=== PATIENT | female | born 1950 | race Caucasian/White ===

== ENCOUNTER 2016-06-05 15:34 | Inpatient (IN) | payer MEDICARE, BC ==
--- NOTE | 2016-06-05 16:02 | ER Document Report ---
ED Medical Screen (RME) - General Stated Complaint: DIFFICULTY BREATHING,FEET SWELLING Notes: Patient has chronic COPD he has been having an exacerbation since when her doctor put her on antibiotics she is showing little improvement. I greeted and performed a rapid initial assessment of this patient. Comprehensive ED assessment and evaluation of the patient, analysis of test results and completion of the medical decision making process will be conducted by additional ED providers. TRAVEL OUTSIDE OF THE [place] IN LAST 30 DAYS: No - Related Data Allergies/Adverse Reactions: pregabalin [From Lyrica] Allergy (Verified 12/10/15 10:33) Muscle Pain Past Medical History - Past Medical History Cardiac Medical History: Reports: Hx Hypertension Denies: Hx Coronary Artery Disease, Hx Heart Attack Pulmonary Medical History: Reports: Hx Asthma - 08/23/13 breathing diff ER, Hx Bronchitis - Occasional in Winter, Hx COPD Denies: Hx Pneumonia Neurological Medical History: Denies: Hx Cerebrovascular Accident, Hx Seizures Endocrine Medical History: Reports: Hx Diabetes Mellitus Type 2 GI Medical History: Denies: Hx Hepatitis, Hx Hiatal Hernia, Hx Ulcer Musculoskeltal Medical History: Reports Hx Arthritis - poss left hand Infectious Medical History: Denies: Hx Hepatitis Past Surgical History: Denies: Hx Hysterectomy, Hx Mastectomy, Hx Open Heart Surgery, Hx Pacemaker - Immunizations Hx Diphtheria, Pertussis, Tetanus Vaccination: No - unsure
[2016-06-05] MEDS ORDERED: ALBUTEROL SULFATE 0.083% NEB 2.5 MG/3 ML AMPUL NEB ONE (16:10)
[2016-06-05 16:27] LABS: ABSOLUTE EOSINOPHILS # (AUTO) 0.1 10^3/uL (0.0-0.6); ABSOLUTE LYMPHOCYTES (AUTO) 2.2 10^3/uL (0.5-4.7); ABSOLUTE MONOCYTES (AUTO) 1.1 10^3/uL (0.1-1.4); ABSOLUTE NEUT (AUTO) 5.4 10^3/uL (1.7-8.2); BASOPHILS % (AUTO) 0.5 % (0-2); EOSINOPHILS % (AUTO) 1.5 % (0-6); HEMATOCRIT 44.4 % (36.0-47.0); HEMOGLOBIN 14.1 g/dL (12.0-15.5); HGB HCT DIFFERENCE -2.1; LYMPHOCYTES % (AUTO) 24.4 % (13-45); MEAN CORPUSCULAR HEMOGLOBIN 26.4 pg (27.0-33.4); MEAN CORPUSCULAR HGB CONC 31.7 g/dL (32.0-36.0); MEAN CORPUSCULAR VOLUME 83 fl (80-97); MONOCYTES % (AUTO) 12.5 % (3-13); RED BLOOD COUNT 5.33 10^6/uL (3.72-5.28); RED CELL DISTRIBUTION WIDTH 15.5 % (11.5-14.0); SEGMENTED NEUTROPHILS % (AUTO) 61.1 % (42-78); WHITE BLOOD COUNT 8.8 10^3/uL (4.0-10.5)
[2016-06-05 16:49] LABS: ALANINE AMINOTRANSFERASE 20 U/L (9-52); ALBUMIN 4.2 g/dL (3.5-5.0); ALKALINE PHOSPHATASE 82 U/L (38-126); ANION GAP 12 (5-19); ASPARTATE AMINO TRANSFERASE 13 U/L (14-36); BILIRUBIN,TOTAL 0.6 mg/dL (0.2-1.3); BLOOD UREA NITROGEN 11 mg/dL (7-20); CALCIUM 10.1 mg/dL (8.4-10.2); CARBON DIOXIDE 31 mmol/L (22-30); CHLORIDE 96 mmol/L (98-107); CREATININE RESULT 0.85 mg/dL (0.52-1.25); GLUCOSE 184 mg/dL (75-110); POTASSIUM 4.6 mmol/L (3.6-5.0); TOTAL PROTEIN 6.8 g/dL (6.3-8.2)
[2016-06-05] MEDS ORDERED: DILTIAZEM HCL INJ 25 MG/5 ML VIAL IV ONE (17:23)
[2016-06-05] MEDS ORDERED: DILTIAZEM HCL/D5W 125 ML IV PRN (17:23)
--- NOTE | 2016-06-05 17:26 | ER Document Report ---
ED General - General Chief Complaint: Breathing Difficulty Stated Complaint: DIFFICULTY BREATHING,FEET SWELLING Mode of Arrival: Ambulatory Information source: Patient Notes: 65-year-old female history of COPD who was seen by her primary care physician 4 days prior presents with complaints of shortness of breath. Patient notes that symptoms do not improve after being seen by the primary care physician, patient was satting 77% in her office TRAVEL OUTSIDE OF THE [place] IN LAST 30 DAYS: No - HPI Onset: Last week Onset/Duration: Persistent Quality of pain: No pain Severity: Moderate Pain Level: Denies Associated symptoms: Shortness of breath Exacerbated by: Denies Relieved by: Denies Similar symptoms previously: Yes Recently seen / treated by doctor: Yes - Related Data Allergies/Adverse Reactions: pregabalin [From Lyrica] Allergy (Verified 06/05/16 17:31) Muscle Pain Home Medications: Current Home Medications Albuterol Sulfate [Ventolin 0.042% Neb 1.25 mg/3 ml Ampul] 1.25 mg NEB Q4H PRN 06/05/16 [History] Fluticasone/Salmeterol [Advair 500-50 Diskus 28 Dose] 1 inh IH Q12H 06/05/16 [ History] Tramadol HCl [Ultram 50 mg Tablet] 1 tab PO PRN PRN 06/05/16 [History] Past Medical History - Social History Smoking Status: Current Every Day Smoker Cigarette use (# per day): Yes Chew tobacco use (# tins/day): No Smoking Education Provided: Yes - Patient counselled regarding cessation for 4 minutes Family History: Reviewed & Not Pertinent - Past Medical History Cardiac Medical History: Reports: Hx Hypertension Denies: Hx Coronary Artery Disease, Hx Heart Attack Pulmonary Medical History: Reports: Hx Asthma - 08/23/13 breathing diff ER, Hx Bronchitis - Occasional in Winter, Hx COPD Denies: Hx Pneumonia Neurological Medical History: Denies: Hx Cerebrovascular Accident, Hx Seizures Endocrine Medical History: Reports: Hx Diabetes Mellitus Type 2 GI Medical History: Denies: Hx Hepatitis, Hx Hiatal Hernia, Hx Ulcer Musculoskeltal Medical History: Reports Hx Arthritis - poss left hand Infectious Medical History: Denies: Hx Hepatitis Past Surgical History: Denies: Hx Hysterectomy, Hx Mastectomy, Hx Open Heart Surgery, Hx Pacemaker - Immunizations Hx Diphtheria, Pertussis, Tetanus Vaccination: No - unsure Hx Pneumococcal Vaccination: 05/08/14 Review of Systems - Review of Systems Notes: REVIEW OF SYSTEMS: CONSTITUTIONAL : Denies fever, chills, or sweats. Denies recent illness. EENT: Denies eye, ear, throat, or mouth pain or symptoms. Denies nasal or sinus congestion or discharge. Denies throat, tongue, or mouth swelling or difficulty swallowing. CARDIOVASCULAR: Denies chest pain. Denies palpitations or racing or irregular heart beat. Admits to lower extremity edema RESPIRATORY admits to shortness of breath GASTROINTESTINAL: Denies abdominal pain or distention. Denies nausea, vomiting , or diarrhea. Denies blood in vomitus, stools, or per rectum. Denies black, tarry stools. Denies constipation. GENITOURINARY: Denies difficulty urinating, painful urination, burning, frequency, blood in urine, or discharge. FEMALE GENITOURINARY: Denies vaginal bleeding, heavy or abnormal periods, irregular periods. Denies vaginal discharge or odor. MUSCULOSKELETAL: Denies back or neck pain or stiffness. Denies joint pain or swelling. SKIN: Denies rash, lesions or sores. HEMATOLOGIC : Denies easy bruising or bleeding. LYMPHATIC: Denies swollen, enlarged glands. NEUROLOGICAL: Denies confusion or altered mental status. Denies passing out or loss of consciousness. Denies dizziness or lightheadedness. Denies headache. Denies weakness or paralysis or loss of use of either side. Denies problems with gait or speech. Denies sensory loss, numbness, or tingling. Denies seizures. PSYCHIATRIC: Denies anxiety or stress. Denies depression, suicidal ideation, or homicidal ideation. ALL OTHER SYSTEMS REVIEWED AND NEGATIVE. Dictation was performed using [employer] voice recognition software PHYSICAL EXAMINATION: GENERAL: Well-appearing, well-nourished and in no acute distress. HEAD: Atraumatic, normocephalic. EYES: Pupils equal round and reactive to light, extraocular movements intact, conjunctiva are normal. ENT: Nares patent, oropharynx clear without exudates. Moist mucous membranes. NECK: Normal range of motion, supple without lymphadenopathy LUNGS: Decreased breath sounds all throughout HEART: Irregular rate and rhythm ABDOMEN: Soft, nontender, nondistended abdomen. No guarding, no rebound. No masses appreciated. Female : deferred Musculoskeletal: Normal range of motion, no pitting or edema. No cyanosis. NEUROLOGICAL: Cranial nerves grossly intact. Normal speech, normal gait. Normal sensory, motor exams PSYCH: Normal mood, normal affect. SKIN: Warm, Dry, normal turgor, no rashes or lesions noted. Physical Exam - Vital signs Vitals: Resp 22 H 06/05/16 16:30 Course - Re-evaluation Re-evalutation: 06/05/16 17:25 pt noted to be in new onset afib, ordered cardizem but the rate is intermittently normal. Patient satting 82% on room air 06/05/16 19:03 cta negative[facility], [facility] 06/05/16 19:03 06/05/16 19:05 - Vital Signs Vital signs: Temp Pulse Resp BP Pulse Ox 20 140/92 H 97 06/05/16 17:01 06/05/16 17:01 06/05/16 17:01 - Laboratory Result Diagrams: 06/05/16 16:05 06/05/16 16:05 Laboratory results interpreted by me: 06/05/16 06/05/16 16:05 16:05 RBC 5.33 H MCH 26.4 L MCHC 31.7 L RDW 15.5 H Chloride 96 L Carbon Dioxide 31 H Glucose 184 H AST 13 L - Diagnostic Test Radiology reviewed: Image reviewed, Reports reviewed Critical Care Note - Critical Care Note Total time excluding time spent on procedures (mins): 37 Comments: 37 minutes of critical care time spent in direct contact evaluating and reevaluating the patient, treating symptoms, reviewing labs and studies and speaking with family and consultants excluding any procedures Discharge - Discharge Clinical Impression: COPD exacerbation, Hypoxemia, Encounter for smoking cessation counseling Respiratory failure Qualifiers: Chronicity: acute Respiratory failure complication: hypoxia Qualified Code(s): J96.01 - Acute respiratory failure with hypoxia Condition: Stable Disposition: ADMITTED INPATIENT Admitting Provider: Bianca Unit Admitted: [facility]
[2016-06-05] MEDS ORDERED: ONDANSETRON HCL INJ/PF 4 MG/2 ML SDV IV PRN (19:00)
[2016-06-05] MEDS ORDERED: GLUCAGON,HUMAN RECOMB 1 MG INJ IM PRN (19:02)
[2016-06-05] MEDS ORDERED: DEXTROSE 50%-WATER 25 GM/50 ML DISP.SYRIN IV PRN ×2 (19:02)
[2016-06-05] MEDS ORDERED: DEXTROSE 40% GEL 15 GM TUBE PO PRN ×2 (19:02)
[2016-06-05] MEDS ORDERED: TRAMADOL HCL 50 MG TABLET PO PRN (19:45)
[2016-06-05] MEDS ORDERED: CEFTRIAXONE 1 GM/D5W RTU 1 GM/50 ML RTUPB IV ONE (20:00)
[2016-06-05] MEDS: LEVALBUTEROL HCL NEB 1.25 MG/3 ML AMPUL NEB SCH (20:46)
[2016-06-05] MEDS: CETIRIZINE 10 MG TABLET PO SCH (20:46)
[2016-06-05] MEDS: CEFTRIAXONE 1 GM/D5W RTU 1 GM/50 ML RTUPB IV SCH (21:07)
[2016-06-05 21:47] LABS: CREATINE KINASE MB 1.31 ng/mL (<4.55); TROPONIN I 0.022 ng/mL
--- NOTE | 2016-06-05 23:00 | EKG REPORT ---
SEVERITY:- ABNORMAL ECG - SINUS TACHYCARDIA VENTRICULAR PREMATURE COMPLEX LAD, CONSIDER LEFT ANTERIOR FASCICULAR BLOCK PROBABLE ANTEROSEPTAL INFARCT, AGE INDETERM : Confirmed by: Claire Mayer MD 05-Jun-2016 22:59:34
[2016-06-05] MEDS: METHYLPREDNISOLONE INJ 40 MG/1 ML SDV IV SCH (23:13)
[2016-06-06] MEDS: LEVALBUTEROL HCL NEB 1.25 MG/3 ML AMPUL NEB SCH ×7 (00:10→23:28)
[2016-06-06 03:27] LABS: ABSOLUTE LYMPHOCYTES (AUTO) 0.6 10^3/uL (0.5-4.7); ABSOLUTE MONOCYTES (AUTO) 0.1 10^3/uL (0.1-1.4); ABSOLUTE NEUT (AUTO) 5.9 10^3/uL (1.7-8.2); BASOPHILS % (AUTO) 0.7 % (0-2); EOSINOPHILS % (AUTO) 0.1 % (0-6); HEMATOCRIT 41.1 % (36.0-47.0); HGB HCT DIFFERENCE -2.1; LYMPHOCYTES % (AUTO) 8.6 % (13-45); MEAN CORPUSCULAR HGB CONC 31.5 g/dL (32.0-36.0); MEAN CORPUSCULAR VOLUME 82 fl (80-97); MONOCYTES % (AUTO) 2.2 % (3-13); RED CELL DISTRIBUTION WIDTH 15.3 % (11.5-14.0); SEGMENTED NEUTROPHILS % (AUTO) 88.4 % (42-78); WHITE BLOOD COUNT 6.7 10^3/uL (4.0-10.5)
[2016-06-06 03:56] LABS: ANION GAP 10 (5-19); BLOOD UREA NITROGEN 11 mg/dL (7-20); CALCIUM 9.6 mg/dL (8.4-10.2); CARBON DIOXIDE 32 mmol/L (22-30); CHLORIDE 97 mmol/L (98-107); CREATINE KINASE 43 U/L (30-135); CREATININE RESULT 0.93 mg/dL (0.52-1.25); GLUCOSE 231 mg/dL (75-110); POTASSIUM 4.9 mmol/L (3.6-5.0); SODIUM 138.9 mmol/L (137-145)
[2016-06-06 04:09] LABS: CREATINE KINASE MB 1.6 ng/mL (<4.55); TROPONIN I 0.016 ng/mL
[2016-06-06 04:14] LABS: MAGNESIUM 1.2 mg/dL (1.6-2.3)
[2016-06-06] MEDS: METHYLPREDNISOLONE INJ 40 MG/1 ML SDV IV SCH ×3 (05:22→21:11)
[2016-06-06] MEDS: ENOXAPARIN SODIUM INJ 40 MG/0.4 ML DISP.SYRIN SUBCUT SCH (07:50)
[2016-06-06] MEDS: INSULIN LISPRO 100 UNIT/ML 3 ML VIAL SUBCUT PRN ×4 (07:55→21:19)
[2016-06-06] MEDS ORDERED: MAGNESIUM SULFATE/D5W 1 GM/100 ML RTUPB IV ONE (08:45)
[2016-06-06] MEDS: MONTELUKAST SODIUM 10 MG TABLET PO SCH (09:12)
[2016-06-06] MEDS: LANSOPRAZOLE 30 MG TAB.RAP.DR PO SCH (09:12)
[2016-06-06] MEDS: VALSARTAN 160 MG TABLET PO SCH (09:12)
[2016-06-06] MEDS: ASPIRIN 81 MG TABLET, CHEWABLE PO SCH (09:12)
[2016-06-06] MEDS: ROFLUMILAST 500 MCG TABLET PO SCH (09:18)
[2016-06-06] MEDS ORDERED: LANSOPRAZOLE 30 MG TAB.RAP.DR PO SCH (10:00)
[2016-06-06] MEDS ORDERED: (PENDING PHARMACY ID) (Esomeprazole Mag Trihydrate [Nexium] 40 MG) PO SCH (10:00)
[2016-06-06 11:15] LABS: CREATINE KINASE MB 1.76 ng/mL (<4.55)
[2016-06-06 11:16] LABS: TROPONIN I < 0.012 ng/mL
--- NOTE | 2016-06-06 13:46 | PDOC PROGRESS REPORT ---
Subjective Progress Note for:: 06/06/16 Subjective:: Patient reported some improvement in her breathing but continue to desaturate off supplemental oxygen and with efforts. She denied any chest pain. No fever or chills. No nausea or vomiting. Physical Exam Vital Signs: Temp Pulse Resp BP Pulse Ox 98.2 F 83 20 129/81 H 91 L 06/06/16 11:00 06/06/16 11:52 06/06/16 11:52 06/06/16 11:00 06/06/16 11:52 Intake & Output 06/05/16 06/06/16 06/07/16 06:59 06:59 06:59 Intake Total 740 848 Balance 740 848 Weight 57.2 kg General appearance: PRESENT: mild distress - on supplemental oxygen at 2L/min via nasal cannula, thin Head exam: PRESENT: atraumatic, normocephalic Eye exam: PRESENT: conjunctiva pink, EOMI, PERRLA Mouth exam: PRESENT: moist Throat exam: ABSENT: post pharyngeal erythema, tonsillar erythema, tonsillar exudate, tonsillogmegaly, other Neck exam: PRESENT: full ROM. ABSENT: carotid bruit, JVD, lymphadenopathy, thyromegaly Respiratory exam: PRESENT: rhonchi - expiratory phase, scattered and bilaterally, wheezes - minimal audible wheezing. ABSENT: accessory muscle use, chest wall tenderness, clear to auscultation alexandre, crackles, decreased breath sounds, prolonged expiratory phas, rales, retraction, stridor, symmetrical, tachypnea, unlabored, other Cardiovascular exam: PRESENT: RRR. ABSENT: diastolic murmur, rubs, systolic murmur GI/Abdominal exam: PRESENT: normal bowel sounds, soft. ABSENT: distended, guarding, mass, organolmegaly, rebound, tenderness Extremities exam: PRESENT: full ROM Musculoskeletal exam: PRESENT: deformity - related to joint arthritis, full ROM Neurological exam: PRESENT: alert, awake, oriented to person, oriented to place , oriented to time, oriented to situation, CN II-XII grossly intact. ABSENT: motor sensory deficit Psychiatric exam: PRESENT: appropriate affect, normal mood. ABSENT: homicidal ideation, suicidal ideation Skin exam: PRESENT: dry, intact, warm. ABSENT: cyanosis, rash Results Laboratory Results: 06/06/16 03:13 06/06/16 03:13 06/06/16 06/06/16 03:13 03:13 WBC 6.7 RBC 5.00 Hgb 13.0 Hct 41.1 MCV 82 MCH 26.0 L MCHC 31.5 L RDW 15.3 H Plt Count 234 Seg Neutrophils % 88.4 H Lymphocytes % 8.6 L Monocytes % 2.2 L Eosinophils % 0.1 Basophils % 0.7 Absolute Neutrophils 5.9 Absolute Lymphocytes 0.6 Absolute Monocytes 0.1 Absolute Eosinophils 0.0 Absolute Basophils 0.0 Sodium 138.9 Potassium 4.9 Chloride 97 L Carbon Dioxide 32 H Anion Gap 10 BUN 11 Creatinine 0.93 Est GFR ( Amer) > 60 Est GFR (Non-Af Amer) > 60 Glucose 231 H Calcium 9.6 Magnesium 1.2 L* 06/05/16 06/05/16 06/06/16 20:50 20:50 03:13 Creatine Kinase 37 CK-MB (CK-2) 1.31 1.60 Troponin I 0.022 0.016 NT-Pro-B Natriuret Pep 636 06/06/16 06/06/16 06/06/16 03:13 10:19 10:19 Creatine Kinase 43 49 CK-MB (CK-2) 1.76 Troponin I < 0.012 NT-Pro-B Natriuret Pep Impressions: Chest X-Ray 06/05/16 16:29 IMPRESSION: COPD. No acute findings. Chest/Abdomen CTA 06/05/16 17:23 IMPRESSION: Obstructive lung disease. Bandlike scarring or atelectasis in the lingula and left lower lobe laterally Assessment & Plan - Diagnosis (1) COPD exacerbation Is this a current diagnosis for this admission?: YesPlan: Continue IV Solu Medrol and bronchodilator therapy. Extensive counseling was done on smoking cessation and contribution to her acute respiratory decompensation. (2) Encounter for smoking cessation counseling Is this a current diagnosis for this admission?: YesPlan: Counseling was done on smoking cessation. I will request smoking cessation teaching and counseling consult during this hospitalization. (3) Hypoxemia Is this a current diagnosis for this admission?: YesPlan: Continue respiratory decompensation therapy as outlined along with smoking cessation intervention. Patient may need home oxygen supplementation upon discharge. (4) Respiratory failure Qualifiers: Chronicity: acute Respiratory failure complication: hypoxia Qualified Code(s): J96.01 - Acute respiratory failure with hypoxia Is this a current diagnosis for this admission?: YesPlan: Continue all current medication management. - Time Time Spent with patient: 25-34 minutes - Inpatient Certification Medical Necessity: Need Close Monitoring Due to Risk of Patient Decompensation, Need For IV Fluids, Need For Continuous Telemetry Monitoring, Need for Nebulizer Therapy and Monitoring of Response, Need for IV Antibiotics, Risk of Complication if Not Cared For in Hospital Post Hospital Care: D/C Swaging Machine Adjuster Documentation - Plan Summary Plan Summary: see attending physician orders.
--- NOTE | 2016-06-06 17:54 | PDOC H&P ---
History of Present Illness Patient complains of: sob History of Present Illness: ELIZABETH JACKSON is a 65 year old female pt came with c/o sob and whezzing since last [address] samantha navas last wk and start levaquin pt still not feel better and in er pt o2 sat was 63 AND ADMIT IN IMCU PT DENIED ANYCHEST PAIN Past Medical History Cardiac Medical History: Reports: Hypertension Denies: Coronary Artery Disease, Myocardial Infarction Pulmonary Medical History: Reports: Asthma - 08/23/13 breathing diff ER, Bronchitis - Occasional in Winter, Chronic Obstructive Pulmonary Disease (COPD) Denies: Pneumonia Neurological Medical History: Denies: Seizures Endocrine Medical History: Reports: Diabetes Mellitus Type 2 GI Medical History: Denies: Hepatitis, Hiatal Hernia Musculoskeltal Medical History: Reports: Arthritis - poss left hand Hematology: Denies: Anemia, Sickle Cell Disease Past Surgical History Past Surgical History: Reports: Tubal Ligation Denies: Amputation, Hysterectomy, Mastectomy, Pacemaker Social History Smoking Status: Current Every Day Smoker Frequency of Alcohol Use: Occasional Hx Recreational Drug Use: No Hx Prescription Drug Abuse: No Family History Family History: Reviewed & Not Pertinent Parental Family History Reviewed: Yes Children Family History Reviewed: Yes Sibling(s) Family History Reviewed.: Yes Medication/Allergy Home Medications: Aspirin 81 mg PO DAILY 04/01/13 Cetirizine HCl [All Day Allergy] 10 mg PO QPM 04/01/13 Metformin HCl [Glucophage] 1,000 mg PO BID 04/01/13 Montelukast Sodium [Singulair 10 mg Tablet] 10 mg PO DAILY 04/01/13 Valsartan [Diovan] 5 - 160 mg PO DAILY 04/01/13 Roflumilast [Daliresp 500 mcg Tablet] 500 mcg PO DAILY 10/08/13 Esomeprazole Mag Trihydrate [Nexium] 40 mg PO DAILY 12/20/13 Tiotropium [place] [Spiriva Handihaler 18 mcg/dose (30 Dose)] 1 puff IH DAILY Fluticasone/Salmeterol [Advair 500-50 Diskus 28 Dose] 1 inh IH Q12H 06/05/16 Tramadol HCl [Ultram 50 mg Tablet] 1 tab PO PRN PRN 06/05/16 Albuterol Sulfate [Ventolin 0.083% Neb 2.5 mg/3 mL Ampul] 0.083 mg PO PRN PRN Allergies/Adverse Reactions: pregabalin [From Lyrica] Allergy (Verified 06/05/16 17:31) Muscle Pain Review of Systems Constitutional: ABSENT: chills, fever(s), headache(s), weight gain, weight loss Eyes: ABSENT: visual disturbances Ears: ABSENT: hearing changes Cardiovascular: PRESENT: dyspnea on exertion, palpitations. ABSENT: chest pain , edema, orthropnea Respiratory: PRESENT: cough, sputum. ABSENT: hemoptysis Gastrointestinal: ABSENT: abdominal pain, constipation, diarrhea, hematemesis, hematochezia, nausea, vomiting Genitourinary: ABSENT: dysuria, hematuria Musculoskeletal: ABSENT: joint swelling Integumentary: ABSENT: rash, wounds Neurological: ABSENT: abnormal gait, abnormal speech, confusion, dizziness, focal weakness, syncope Psychiatric: ABSENT: anxiety, depression, homidical ideation, suicidal ideation Endocrine: ABSENT: cold intolerance, heat intolerance, menstrual abnormalities, polydipsia, polyuria Hematologic/Lymphatic: ABSENT: easy bleeding, easy bruising, lymphadenopathy Physical Exam Vital Signs: Temp Pulse Resp BP Pulse Ox 20 140/92 H 97 06/05/16 17:01 06/05/16 17:01 06/05/16 17:01 Intake & Output 06/04/16 06/05/16 06/06/16 06:59 06:59 06:59 Weight 56.8 kg General appearance: PRESENT: no acute distress Head exam: PRESENT: normocephalic Eye exam: PRESENT: PERRLA Mouth exam: PRESENT: neck supple Respiratory exam: PRESENT: decreased breath sounds, wheezes Cardiovascular exam: PRESENT: +S1, +S2 GI/Abdominal exam: PRESENT: normal bowel sounds, soft. ABSENT: tenderness Extremities exam: PRESENT: pedal edema Neurological exam: PRESENT: alert, awake, oriented to person, oriented to place , oriented to time, oriented to situation Psychiatric exam: PRESENT: anxious Skin exam: PRESENT: dry Results Laboratory Results: 06/05/16 16:05 06/05/16 16:05 06/05/16 06/05/16 16:05 16:05 WBC 8.8 RBC 5.33 H Hgb 14.1 Hct 44.4 MCV 83 MCH 26.4 L MCHC 31.7 L RDW 15.5 H Plt Count 301 Seg Neutrophils % 61.1 Lymphocytes % 24.4 Monocytes % 12.5 Eosinophils % 1.5 Basophils % 0.5 Absolute Neutrophils 5.4 Absolute Lymphocytes 2.2 Absolute Monocytes 1.1 Absolute Eosinophils 0.1 Absolute Basophils 0.0 Sodium 139.0 Potassium 4.6 Chloride 96 L Carbon Dioxide 31 H Anion Gap 12 BUN 11 Creatinine 0.85 Est GFR ( Amer) > 60 Est GFR (Non-Af Amer) > 60 Glucose 184 H Calcium 10.1 Total Bilirubin 0.6 AST 13 L ALT 20 Alkaline Phosphatase 82 Total Protein 6.8 Albumin 4.2 06/05/16 06/05/16 16:05 16:05 Troponin I 0.014 NT-Pro-B Natriuret Pep 658 Impressions: Chest X-Ray 06/05/16 16:29 IMPRESSION: COPD. No acute findings. Chest/Abdomen CTA 06/05/16 17:23 IMPRESSION: Obstructive lung disease. Bandlike scarring or atelectasis in the lingula and left lower lobe laterally Assessment & Plan - Diagnosis (1) COPD exacerbation Is this a current diagnosis for this admission?: YesPlan: Start the patient on IV Solu-Medrol and nebulizer treatments (2) Encounter for smoking cessation counseling Is this a current diagnosis for this admission?: YesPlan: Discussed with the smoking cessation (3) Hypoxemia Is this a current diagnosis for this admission?: Yes (4) Respiratory failure Qualifiers: Chronicity: acute Respiratory failure complication: hypoxia Qualified Code(s): J96.01 - Acute respiratory failure with hypoxia Is this a current diagnosis for this admission?: YesPlan: Most likely from COPD with acute exacerbations continuous oxygen - Time Time Spent: 30 to 50 Minutes Medications reviewed and adjusted accordingly: Yes - Inpatient Certification Medical Necessity: Failure to Improve With Outpatient Therapy, Need for Nebulizer Therapy and Monitoring of Response, Need for IV Antibiotics Post Hospital Care: D/C Coil Tester Documentation - Plan Summary Plan Summary: d/w pt aBOUT CTA REPAORT AND NEW ONSET ABOUT CARDIAC ARRYTHEMIA AND ADMIT IN IMCU D/W SMOKING CESSATION D/W FAMILY IN ROOM
[2016-06-07] MEDS: LEVALBUTEROL HCL NEB 1.25 MG/3 ML AMPUL NEB SCH ×5 (04:31→19:33)
[2016-06-07] MEDS: METHYLPREDNISOLONE INJ 40 MG/1 ML SDV IV SCH ×3 (06:18→21:07)
[2016-06-07] MEDS: ACETAMINOPHEN 325 MG TABLET PO PRN (06:21)
[2016-06-07 06:43] LABS: ABSOLUTE LYMPHOCYTES (AUTO) 0.9 10^3/uL (0.5-4.7); ABSOLUTE MONOCYTES (AUTO) 0.4 10^3/uL (0.1-1.4); ABSOLUTE NEUT (AUTO) 4.5 10^3/uL (1.7-8.2); BASOPHILS % (AUTO) 0.1 % (0-2); HEMATOCRIT 38.4 % (36.0-47.0); HEMOGLOBIN 12.2 g/dL (12.0-15.5); HGB HCT DIFFERENCE -1.8; LYMPHOCYTES % (AUTO) 15.1 % (13-45); MEAN CORPUSCULAR HGB CONC 31.8 g/dL (32.0-36.0); MEAN CORPUSCULAR VOLUME 82 fl (80-97); MONOCYTES % (AUTO) 7.5 % (3-13); SEGMENTED NEUTROPHILS % (AUTO) 77.3 % (42-78); WHITE BLOOD COUNT 5.9 10^3/uL (4.0-10.5)
[2016-06-07 07:09] LABS: ANION GAP 7 (5-19); BLOOD UREA NITROGEN 16 mg/dL (7-20); CALCIUM 9.6 mg/dL (8.4-10.2); CARBON DIOXIDE 31 mmol/L (22-30); CHLORIDE 94 mmol/L (98-107); GLUCOSE 217 mg/dL (75-110); POTASSIUM 4.9 mmol/L (3.6-5.0); SODIUM 132.2 mmol/L (137-145)
[2016-06-07] MEDS: ENOXAPARIN SODIUM INJ 40 MG/0.4 ML DISP.SYRIN SUBCUT SCH (08:03)
[2016-06-07] MEDS: INSULIN LISPRO 100 UNIT/ML 3 ML VIAL SUBCUT PRN ×4 (08:13→21:11)
[2016-06-07] MEDS: VALSARTAN 160 MG TABLET PO SCH (10:56)
[2016-06-07] MEDS: LANSOPRAZOLE 30 MG TAB.RAP.DR PO SCH (10:57)
[2016-06-07] MEDS: ASPIRIN 81 MG TABLET, CHEWABLE PO SCH (10:57)
[2016-06-07] MEDS: CEFTRIAXONE 1 GM/D5W RTU 1 GM/50 ML RTUPB IV SCH ×2 (10:57→12:00)
[2016-06-07] MEDS: MONTELUKAST SODIUM 10 MG TABLET PO SCH (10:57)
[2016-06-07] MEDS: ROFLUMILAST 500 MCG TABLET PO SCH (10:57)
--- NOTE | 2016-06-07 13:29 | PDOC PROGRESS REPORT ---
Subjective Progress Note for:: 06/07/16 Subjective:: Patient claimed improvement in her breathing but supplemental on oxygen at 2 L/ min. She denied any chest pain. No fever or chills. No nausea or vomiting. Physical Exam Vital Signs: Temp Pulse Resp BP Pulse Ox 98.5 F 84 18 150/73 H 97 06/07/16 11:15 06/07/16 12:27 06/07/16 12:27 06/07/16 11:15 06/07/16 12:27 Intake & Output 06/06/16 06/07/16 06/08/16 06:59 06:59 06:59 Intake Total 740 1868 473 Output Total 1450 400 Balance 740 418 73 Weight 57.2 kg 57.3 kg Physical Exam: General appearance: PRESENT: mild distress - on supplemental oxygen at 2L/min via nasal cannula, thin Head exam: PRESENT: atraumatic, normocephalic Eye exam: PRESENT: conjunctiva pink, EOMI, PERRLA Mouth exam: PRESENT: moist Throat exam: ABSENT: post pharyngeal erythema, tonsillar erythema, tonsillar exudate, tonsillogmegaly, other Neck exam: PRESENT: full ROM. ABSENT: carotid bruit, JVD, lymphadenopathy, thyromegaly Respiratory exam: PRESENT: minimal expiratory rhonchi - expiratory phase, scattered and bilaterally, wheezes - minimal audible wheezing. ABSENT: accessory muscle use, chest wall tenderness, clear to auscultation alexandre, crackles , decreased breath sounds, prolonged expiratory phas, rales, retraction, stridor , symmetrical, tachypnea, unlabored, other Cardiovascular exam: PRESENT: RRR. ABSENT: diastolic murmur, rubs, systolic murmur GI/Abdominal exam: PRESENT: normal bowel sounds, soft. ABSENT: distended, guarding, mass, organolmegaly, rebound, tenderness Extremities exam: PRESENT: full ROM Musculoskeletal exam: PRESENT: deformity - related to joint arthritis, full ROM Neurological exam: PRESENT: alert, awake, oriented to person, oriented to place , oriented to time, oriented to situation, CN II-XII grossly intact. ABSENT: motor sensory deficit Psychiatric exam: PRESENT: appropriate affect, normal mood. ABSENT: homicidal ideation, suicidal ideation Skin exam: PRESENT: dry, intact, warm. ABSENT: cyanosis, rash Results Laboratory Results: 06/07/16 06:16 06/07/16 06:16 06/07/16 06/07/16 06:16 06:16 WBC 5.9 RBC 4.70 Hgb 12.2 Hct 38.4 MCV 82 MCH 26.0 L MCHC 31.8 L RDW 15.0 H Plt Count 253 Seg Neutrophils % 77.3 Lymphocytes % 15.1 Monocytes % 7.5 Eosinophils % 0.0 Basophils % 0.1 Absolute Neutrophils 4.5 Absolute Lymphocytes 0.9 Absolute Monocytes 0.4 Absolute Eosinophils 0.0 Absolute Basophils 0.0 Sodium 132.2 L Potassium 4.9 Chloride 94 L Carbon Dioxide 31 H Anion Gap 7 BUN 16 Creatinine 0.70 Est GFR ( Amer) > 60 Est GFR (Non-Af Amer) > 60 Glucose 217 H Calcium 9.6 06/05/16 21:05 Sputum Gram Stain - Final 06/05/16 06/05/16 06/06/16 20:50 20:50 03:13 Creatine Kinase 37 CK-MB (CK-2) 1.31 1.60 Troponin I 0.022 0.016 NT-Pro-B Natriuret Pep 636 06/06/16 06/06/16 06/06/16 03:13 10:19 10:19 Creatine Kinase 43 49 CK-MB (CK-2) 1.76 Troponin I < 0.012 NT-Pro-B Natriuret Pep Impressions: Chest X-Ray 06/05/16 16:29 IMPRESSION: COPD. No acute findings. Chest/Abdomen CTA 06/05/16 17:23 IMPRESSION: Obstructive lung disease. Bandlike scarring or atelectasis in the lingula and left lower lobe laterally Assessment & Plan - Diagnosis (1) COPD exacerbation Is this a current diagnosis for this admission?: YesPlan: Continue IV Solu Medrol and bronchodilator therapy. Counseling was done on smoking cessation program. (2) Encounter for smoking cessation counseling Is this a current diagnosis for this admission?: Yes (3) Hypoxemia Is this a current diagnosis for this admission?: YesPlan: Continue respiratory decompensation therapy as outlined along with smoking cessation intervention. Patient may need home oxygen supplementation upon discharge. (4) Respiratory failure Qualifiers: Chronicity: acute Respiratory failure complication: hypoxia Qualified Code(s): J96.01 - Acute respiratory failure with hypoxia Is this a current diagnosis for this admission?: YesPlan: Continue all current medication management. I will request for pulse oximetry documentation with and without supplemental oxygen. - Time Time Spent with patient: 25-34 minutes Medications reviewed and adjusted accordingly: Yes Anticipated discharge: Home with Homehealth Within: within 72 hours - Inpatient Certification Based on my medical assessment, after consideration of the patient's comorbidities, presenting symptoms, or acuity I expect that the services needed warrant INPATIENT care.: Yes I certify that my determination is in accordance with my understanding of Medicare's requirements for reasonable and necessary INPATIENT services [42 CFR 412.3e].: Yes Medical Necessity: Need Close Monitoring Due to Risk of Patient Decompensation, Need For IV Fluids, Need For Continuous Telemetry Monitoring, Need for Nebulizer Therapy and Monitoring of Response Post Hospital Care: D/C Matlab Developer Documentation - Plan Summary Plan Summary: See attending physician orders.
[2016-06-07] MEDS: CETIRIZINE 10 MG TABLET PO SCH (17:00)
[2016-06-08] MEDS: LEVALBUTEROL HCL NEB 1.25 MG/3 ML AMPUL NEB SCH ×7 (00:20→23:49)
[2016-06-08] MEDS: METHYLPREDNISOLONE INJ 40 MG/1 ML SDV IV SCH ×2 (05:30→13:14)
[2016-06-08 06:25] LABS: ABSOLUTE LYMPHOCYTES (AUTO) 0.9 10^3/uL (0.5-4.7); ABSOLUTE MONOCYTES (AUTO) 0.3 10^3/uL (0.1-1.4); BASOPHILS % (AUTO) 0.3 % (0-2); HEMATOCRIT 39.6 % (36.0-47.0); HEMOGLOBIN 12.6 g/dL (12.0-15.5); HGB HCT DIFFERENCE -1.8; LYMPHOCYTES % (AUTO) 14.5 % (13-45); MEAN CORPUSCULAR HEMOGLOBIN 26.2 pg (27.0-33.4); MEAN CORPUSCULAR HGB CONC 31.9 g/dL (32.0-36.0); MEAN CORPUSCULAR VOLUME 82 fl (80-97); MONOCYTES % (AUTO) 4.8 % (3-13); RED BLOOD COUNT 4.83 10^6/uL (3.72-5.28); SEGMENTED NEUTROPHILS % (AUTO) 80.4 % (42-78); WHITE BLOOD COUNT 6.2 10^3/uL (4.0-10.5)
[2016-06-08 06:39] LABS: ANION GAP 6 (5-19); BLOOD UREA NITROGEN 20 mg/dL (7-20); CALCIUM 9.5 mg/dL (8.4-10.2); CARBON DIOXIDE 35 mmol/L (22-30); CHLORIDE 90 mmol/L (98-107); CREATININE RESULT 0.73 mg/dL (0.52-1.25); GLUCOSE 233 mg/dL (75-110); POTASSIUM 5.4 mmol/L (3.6-5.0); SODIUM 130.9 mmol/L (137-145)
[2016-06-08] MEDS: ENOXAPARIN SODIUM INJ 40 MG/0.4 ML DISP.SYRIN SUBCUT SCH (07:31)
[2016-06-08] MEDS: INSULIN LISPRO 100 UNIT/ML 3 ML VIAL SUBCUT PRN ×3 (07:48→17:00)
[2016-06-08] MEDS: VALSARTAN 160 MG TABLET PO SCH (09:22)
[2016-06-08] MEDS: MONTELUKAST SODIUM 10 MG TABLET PO SCH (09:22)
[2016-06-08] MEDS: ROFLUMILAST 500 MCG TABLET PO SCH (09:23)
[2016-06-08] MEDS: LANSOPRAZOLE 30 MG TAB.RAP.DR PO SCH (09:23)
[2016-06-08] MEDS: ASPIRIN 81 MG TABLET, CHEWABLE PO SCH (09:23)
[2016-06-08] MEDS: CEFTRIAXONE 1 GM/D5W RTU 1 GM/50 ML RTUPB IV SCH (09:27)
[2016-06-08] MEDS: ACETAMINOPHEN 325 MG TABLET PO PRN (11:58)
[2016-06-08] MEDS ORDERED: OXYCODONE-ACETAMINOPHEN 5-325 MG TABLET PO PRN (14:20)
[2016-06-08] MEDS: CETIRIZINE 10 MG TABLET PO SCH (17:00)
[2016-06-08] MEDS ORDERED: PREDNISONE 20 MG TABLET PO ONE (18:45)
--- NOTE | 2016-06-08 18:45 | PDOC PROGRESS REPORT ---
Subjective Progress Note for:: 06/08/16 Subjective:: Patient claimed improvement in her breathing. Remain on supplemental on oxygen at 2 L/min. Her ambulatory pulse oximetry evaluation did suggest need for supplemental oxygen upon discharge. She denied any chest pain. No fever or chills. No nausea or vomiting. There has been episode of headache and elevated blood pressure so far today. Physical Exam Vital Signs: Temp Pulse Resp BP Pulse Ox 98.5 F 93 20 158/80 H 97 06/08/16 16:29 06/08/16 16:29 06/08/16 16:29 06/08/16 16:29 06/08/16 16:29 Intake & Output 06/07/16 06/08/16 06/09/16 06:59 06:59 06:59 Intake Total 1868 2833 760 Output Total 1450 2925 500 Balance 418 -92 260 Weight 57.3 kg 57.7 kg Physical Exam: General appearance: PRESENT: mild distress - on supplemental oxygen at 2L/min via nasal cannula, thin Head exam: PRESENT: atraumatic, normocephalic Eye exam: PRESENT: conjunctiva pink, EOMI, PERRLA Mouth exam: PRESENT: moist Throat exam: ABSENT: post pharyngeal erythema, tonsillar erythema, tonsillar exudate, tonsillogmegaly, other Neck exam: PRESENT: full ROM. ABSENT: carotid bruit, JVD, lymphadenopathy, thyromegaly Respiratory exam: PRESENT: bilateral end expiratory rhonchi. ABSENT: accessory muscle use, chest wall tenderness, clear to auscultation alexandre, crackles, decreased breath sounds, prolonged expiratory phas, rales, retraction, stridor, symmetrical, tachypnea, unlabored, other Cardiovascular exam: PRESENT: RRR. ABSENT: diastolic murmur, rubs, systolic murmur GI/Abdominal exam: PRESENT: normal bowel sounds, soft. ABSENT: distended, guarding, mass, organolmegaly, rebound, tenderness Extremities exam: PRESENT: full ROM Musculoskeletal exam: PRESENT: deformity - related to joint arthritis, full ROM Neurological exam: PRESENT: alert, awake, oriented to person, oriented to place , oriented to time, oriented to situation, CN II-XII grossly intact. ABSENT: motor sensory deficit Psychiatric exam: PRESENT: appropriate affect, normal mood. ABSENT: homicidal ideation, suicidal ideation Skin exam: PRESENT: dry, intact, warm. ABSENT: cyanosis, rash Results Laboratory Results: 06/08/16 05:16 06/08/16 05:16 06/08/16 06/08/16 05:16 05:16 WBC 6.2 RBC 4.83 Hgb 12.6 Hct 39.6 MCV 82 MCH 26.2 L MCHC 31.9 L RDW 15.0 H Plt Count 263 Seg Neutrophils % 80.4 H Lymphocytes % 14.5 Monocytes % 4.8 Eosinophils % 0.0 Basophils % 0.3 Absolute Neutrophils 5.0 Absolute Lymphocytes 0.9 Absolute Monocytes 0.3 Absolute Eosinophils 0.0 Absolute Basophils 0.0 Sodium 130.9 L Potassium 5.4 H Chloride 90 L Carbon Dioxide 35 H Anion Gap 6 BUN 20 Creatinine 0.73 Est GFR ( Amer) > 60 Est GFR (Non-Af Amer) > 60 Glucose 233 H Calcium 9.5 06/05/16 21:05 Sputum Gram Stain - Final 06/05/16 21:05 Sputum Sputum Culture - Final C.albicans/C.dubliniensis Normal Miranda 06/05/16 06/05/16 06/06/16 20:50 20:50 03:13 Creatine Kinase 37 CK-MB (CK-2) 1.31 1.60 Troponin I 0.022 0.016 NT-Pro-B Natriuret Pep 636 06/06/16 06/06/16 06/06/16 03:13 10:19 10:19 Creatine Kinase 43 49 CK-MB (CK-2) 1.76 Troponin I < 0.012 NT-Pro-B Natriuret Pep Impressions: Chest X-Ray 06/05/16 16:29 IMPRESSION: COPD. No acute findings. Chest/Abdomen CTA 06/05/16 17:23 IMPRESSION: Obstructive lung disease. Bandlike scarring or atelectasis in the lingula and left lower lobe laterally Assessment & Plan - Diagnosis (1) COPD exacerbation Is this a current diagnosis for this admission?: YesPlan: D/C IV Solu Medrol. Start on Prednisone 20 mg p.o daily with intent to taper off gradually. Maintain on bronchodilator therapy. Further counseling was done on smoking cessation program. (2) Encounter for smoking cessation counseling Is this a current diagnosis for this admission?: YesPlan: Counseling was done on smoking cessation. I will request smoking cessation teaching and counseling consult during this hospitalization. (3) Hypoxemia Is this a current diagnosis for this admission?: YesPlan: Continue respiratory decompensation therapy as outlined along with smoking cessation intervention. Patient will need home oxygen supplementation upon discharge. Her oximetry at rest without oxygen was 91%, walking 84% and supplemental oxygen at 2 L/min was 94%. (4) Respiratory failure Qualifiers: Chronicity: acute Respiratory failure complication: hypoxia Qualified Code(s): J96.01 - Acute respiratory failure with hypoxia Is this a current diagnosis for this admission?: YesPlan: Continue all current medication management. I will reviewed pulse oximetry documentation with and without supplemental oxygen. - Time Time Spent with patient: 25-34 minutes Smoking Cessation Education: 3 to 10 minutes Medications reviewed and adjusted accordingly: Yes Anticipated discharge: Home Within: within 48 hours - Inpatient Certification Medical Necessity: Need For Continuous Telemetry Monitoring, Need for Nebulizer Therapy and Monitoring of Response, Risk of Complication if Not Cared For in Hospital Post Hospital Care: D/C Integration Analyst Documentation - Plan Summary Plan Summary: see attending physician orders.
[2016-06-09] MEDS: INSULIN LISPRO 100 UNIT/ML 3 ML VIAL SUBCUT PRN ×3 (03:19→17:29)
[2016-06-09] MEDS: LEVALBUTEROL HCL NEB 1.25 MG/3 ML AMPUL NEB SCH ×5 (03:56→19:45)
[2016-06-09] MEDS: ENOXAPARIN SODIUM INJ 40 MG/0.4 ML DISP.SYRIN SUBCUT SCH (08:43)
[2016-06-09] MEDS: CEFTRIAXONE 1 GM/D5W RTU 1 GM/50 ML RTUPB IV SCH (10:12)
[2016-06-09] MEDS: VALSARTAN 160 MG TABLET PO SCH (10:13)
[2016-06-09] MEDS: ROFLUMILAST 500 MCG TABLET PO SCH (10:14)
[2016-06-09] MEDS: PREDNISONE 20 MG TABLET PO SCH (10:14)
[2016-06-09] MEDS: ASPIRIN 81 MG TABLET, CHEWABLE PO SCH (10:14)
[2016-06-09] MEDS: LANSOPRAZOLE 30 MG TAB.RAP.DR PO SCH (10:14)
[2016-06-09] MEDS: MONTELUKAST SODIUM 10 MG TABLET PO SCH (10:14)
[2016-06-09] MEDS: CETIRIZINE 10 MG TABLET PO SCH (17:29)
--- NOTE | 2016-06-09 18:49 | PDOC PROGRESS REPORT ---
Subjective Progress Note for:: 06/09/16 Subjective:: Patient reported improvement in her coughing and breathing. She remain on supplemental on oxygen at 2 L/min. She denied any chest pain. No fever or chills. No nausea, vomiting, or abdominal pain. No reported fever or chills. Her blood culture remain no growth to date. Physical Exam Vital Signs: Temp Pulse Resp BP Pulse Ox 98.4 F 91 18 145/75 H 95 06/09/16 16:11 06/09/16 16:11 06/09/16 16:11 06/09/16 16:11 06/09/16 16:11 Intake & Output 06/08/16 06/09/16 06/10/16 06:59 06:59 06:59 Intake Total 2833 2290 855 Output Total 2925 4200 1500 Balance -92 -1910 -645 Weight 57.7 kg 57.9 kg Physical Exam: General appearance: PRESENT: mild distress - on supplemental oxygen at 2L/min via nasal cannula, thin Head exam: PRESENT: atraumatic, normocephalic Eye exam: PRESENT: conjunctiva pink, EOMI, PERRLA Mouth exam: PRESENT: moist Throat exam: ABSENT: post pharyngeal erythema, tonsillar erythema, tonsillar exudate, tonsillogmegaly, other Neck exam: PRESENT: full ROM. ABSENT: carotid bruit, JVD, lymphadenopathy, thyromegaly Respiratory exam: PRESENT: bilateral end expiratory rhonchi. ABSENT: accessory muscle use, chest wall tenderness, clear to auscultation alexandre, crackles, decreased breath sounds, prolonged expiratory phas, rales, retraction, stridor, symmetrical, tachypnea, unlabored, other Cardiovascular exam: PRESENT: RRR. ABSENT: diastolic murmur, rubs, systolic murmur GI/Abdominal exam: PRESENT: normal bowel sounds, soft. ABSENT: distended, guarding, mass, organolmegaly, rebound, tenderness Extremities exam: PRESENT: full ROM Musculoskeletal exam: PRESENT: deformity - related to joint arthritis, full ROM Neurological exam: PRESENT: alert, awake, oriented to person, oriented to place , oriented to time, oriented to situation, CN II-XII grossly intact. ABSENT: motor sensory deficit Psychiatric exam: PRESENT: appropriate affect, normal mood. ABSENT: homicidal ideation, suicidal ideation Skin exam: PRESENT: dry, intact, warm. ABSENT: cyanosis, rash Results Laboratory Results: 06/08/16 05:16 06/08/16 05:16 06/05/16 06/05/16 06/06/16 20:50 20:50 03:13 Creatine Kinase 37 CK-MB (CK-2) 1.31 1.60 Troponin I 0.022 0.016 NT-Pro-B Natriuret Pep 636 06/06/16 06/06/16 06/06/16 03:13 10:19 10:19 Creatine Kinase 43 49 CK-MB (CK-2) 1.76 Troponin I < 0.012 NT-Pro-B Natriuret Pep Impressions: Chest X-Ray 06/05/16 16:29 IMPRESSION: COPD. No acute findings. Chest/Abdomen CTA 06/05/16 17:23 IMPRESSION: Obstructive lung disease. Bandlike scarring or atelectasis in the lingula and left lower lobe laterally Assessment & Plan - Diagnosis (1) COPD exacerbation Is this a current diagnosis for this admission?: YesPlan: Maintain on tapering Prednisone therapy. Continue bronchodilator therapy. Further counseling was done on smoking cessation program. (2) Encounter for smoking cessation counseling Is this a current diagnosis for this admission?: YesPlan: Counseling was done on smoking cessation. Further smoking cessation teaching and counseling consult during this hospitalization. (3) Hypoxemia Is this a current diagnosis for this admission?: YesPlan: Patient will need portable oxygen concentrator in view of her significant desaturation with minimal efforts such as walking to her room designated toilet. (4) Respiratory failure Qualifiers: Chronicity: acute Respiratory failure complication: hypoxia Qualified Code(s): J96.01 - Acute respiratory failure with hypoxia Is this a current diagnosis for this admission?: YesPlan: Continue all current medication management. - Time Time Spent with patient: 25-34 minutes Smoking Cessation Education: 3 to 10 minutes Medications reviewed and adjusted accordingly: Yes Anticipated discharge: Home - Inpatient Certification Medical Necessity: Need For Continuous Telemetry Monitoring, Need for Nebulizer Therapy and Monitoring of Response, Risk of Complication if Not Cared For in Hospital Post Hospital Care: D/C Metal Bed Assembler Documentation - Plan Summary Plan Summary: see attending physician orders.
[2016-06-10] MEDS: LEVALBUTEROL HCL NEB 1.25 MG/3 ML AMPUL NEB SCH ×5 (00:45→16:19)
[2016-06-10 06:15] LABS: ANION GAP 5 (5-19); BLOOD UREA NITROGEN 25 mg/dL (7-20); CALCIUM 9.5 mg/dL (8.4-10.2); CARBON DIOXIDE 39 mmol/L (22-30); CHLORIDE 93 mmol/L (98-107); CREATININE RESULT 0.66 mg/dL (0.52-1.25); GLUCOSE 133 mg/dL (75-110); POTASSIUM 4.4 mmol/L (3.6-5.0); SODIUM 136.6 mmol/L (137-145)
[2016-06-10] MEDS: ACETAMINOPHEN 325 MG TABLET PO PRN (08:17)
[2016-06-10] MEDS: ENOXAPARIN SODIUM INJ 40 MG/0.4 ML DISP.SYRIN SUBCUT SCH (08:18)
[2016-06-10] MEDS: CEFTRIAXONE 1 GM/D5W RTU 1 GM/50 ML RTUPB IV SCH (09:45)
[2016-06-10] MEDS: MONTELUKAST SODIUM 10 MG TABLET PO SCH (09:46)
[2016-06-10] MEDS: ASPIRIN 81 MG TABLET, CHEWABLE PO SCH (09:46)
[2016-06-10] MEDS: PREDNISONE 20 MG TABLET PO SCH (09:46)
[2016-06-10] MEDS: LANSOPRAZOLE 30 MG TAB.RAP.DR PO SCH (09:46)
[2016-06-10] MEDS: VALSARTAN 160 MG TABLET PO SCH (09:46)
[2016-06-10] MEDS: ROFLUMILAST 500 MCG TABLET PO SCH (09:48)
--- NOTE | 2016-06-10 14:23 | PDOC DISCHARGE SUMMARY ---
General - Admit/Disc Date/PCP Admission Date/Primary Care Provider: 06/05/16 19:00 Discharge Date: 06/10/16 - Discharge Diagnosis (1) COPD exacerbation Is this a current diagnosis for this admission?: Yes (2) Encounter for smoking cessation counseling Is this a current diagnosis for this admission?: Yes (3) Hypoxemia Is this a current diagnosis for this admission?: Yes (4) Respiratory failure Is this a current diagnosis for this admission?: Yes - Additional Information Discharge Diet: As Tolerated Discharge Activity: Balance Activity w/Rest, Energy Conservation, Slowly Increase Activity Home Medications: Aspirin 81 mg PO DAILY 04/01/13 Cetirizine HCl [All Day Allergy] 10 mg PO QPM 04/01/13 Metformin HCl [Glucophage] 1,000 mg PO BID 04/01/13 Montelukast Sodium [Singulair 10 mg Tablet] 10 mg PO DAILY 04/01/13 Valsartan [Diovan] 5 - 160 mg PO DAILY 04/01/13 Roflumilast [Daliresp 500 mcg Tablet] 500 mcg PO DAILY 10/08/13 Esomeprazole Mag Trihydrate [Nexium] 40 mg PO DAILY 12/20/13 Tiotropium [place] [Spiriva Handihaler 18 mcg/dose (30 Dose)] 1 puff IH DAILY Fluticasone/Salmeterol [Advair 500-50 Diskus 28 Dose] 1 inh IH Q12H 06/05/16 Tramadol HCl [Ultram 50 mg Tablet] 1 tab PO PRN PRN 06/05/16 Albuterol Sulfate [Ventolin 0.083% Neb 2.5 mg/3 mL Ampul] 0.083 mg PO PRN PRN Amlodipine/Valsartan [Amlodipine-Valsartan 5-160 mg] 1 each PO DAILY #0 tablet 06/10/16 Prednisone 5 mg PO ASDIR PRN #0 tablet 06/10/16 History of Present Illness Patient complains of: Difficulty with breathing History of Present Illness: ELIZABETH JACKSON is a 65 year old female pt came with c/o sob and whezzing since last [address] samantha navas last wk and start levaquin. pt still not feel better and in er pt o2 sat was 65 AND ADMIT IN IMCU. PT DENIED ANYCHEST PAIN Hospital Course Hospital Course: Patient responsed to supplemental oxygen, IV solu medrol, bronchodilator and antibiotic therapy with IV Ceftriaxone x 5 dys. Her blood culture and sputum culture were negative for bacterial growth. Her sputum culture did suggest mahad species which were considered as colonization due to her oral steroid usage for her COPD management. Patient demonstrated signofcant oxygen desaturation with minimal effort, such as walking into her assigned room toilet. Her ambulatory pulse oximetry did confirm need for persistent supplemental oxygen. Patient will be discharge home today with supplemental oxygen via portable oxygen concentrator at 2L/min. I had extensive discussion with her regardin smoking cessation. She will follow up in the office as directed upon discharge. Physical Exam Vital Signs: Temp Pulse Resp BP Pulse Ox 98.4 F 103 H 22 H 141/75 H 92 06/10/16 13:14 06/10/16 13:14 06/10/16 13:14 06/10/16 13:14 06/10/16 13:14 Intake & Output 06/09/16 06/10/16 06/11/16 06:59 06:59 06:59 Intake Total 2290 1255 1105 Output Total 4200 3300 500 Balance -1910 -2045 605 Weight 57.9 kg 57 kg Physical Exam: Physical Exam: General appearance: PRESENT: mild distress - on supplemental oxygen at 2L/min via nasal cannula, thin Head exam: PRESENT: atraumatic, normocephalic Eye exam: PRESENT: conjunctiva pink, EOMI, PERRLA Mouth exam: PRESENT: moist Throat exam: ABSENT: post pharyngeal erythema, tonsillar erythema, tonsillar exudate, tonsillogmegaly, other Neck exam: PRESENT: full ROM. ABSENT: carotid bruit, JVD, lymphadenopathy, thyromegaly Respiratory exam: PRESENT: bilateral end expiratory rhonchi. ABSENT: accessory muscle use, chest wall tenderness, clear to auscultation alexandre, crackles, decreased breath sounds, prolonged expiratory phas, rales, retraction, stridor, symmetrical, tachypnea, unlabored, other Cardiovascular exam: PRESENT: RRR. ABSENT: diastolic murmur, rubs, systolic murmur GI/Abdominal exam: PRESENT: normal bowel sounds, soft. ABSENT: distended, guarding, mass, organolmegaly, rebound, tenderness Extremities exam: PRESENT: full ROM Musculoskeletal exam: PRESENT: deformity - related to joint arthritis, full ROM Neurological exam: PRESENT: alert, awake, oriented to person, oriented to place , oriented to time, oriented to situation, CN II-XII grossly intact. ABSENT: motor sensory deficit Psychiatric exam: PRESENT: appropriate affect, normal mood. ABSENT: homicidal ideation, suicidal ideation Skin exam: PRESENT: dry, intact, warm. ABSENT: cyanosis, rash Results Laboratory Results: 06/08/16 05:16 06/10/16 05:39 06/10/16 05:39 Sodium 136.6 L Potassium 4.4 Chloride 93 L Carbon Dioxide 39 H Anion Gap 5 BUN 25 H Creatinine 0.66 Est GFR ( Amer) > 60 Est GFR (Non-Af Amer) > 60 Glucose 133 H Calcium 9.5 06/05/16 06/05/16 06/06/16 20:50 20:50 03:13 Creatine Kinase 37 CK-MB (CK-2) 1.31 1.60 Troponin I 0.022 0.016 NT-Pro-B Natriuret Pep 636 06/06/16 06/06/16 06/06/16 03:13 10:19 10:19 Creatine Kinase 43 49 CK-MB (CK-2) 1.76 Troponin I < 0.012 NT-Pro-B Natriuret Pep Impressions: Chest X-Ray 06/05/16 16:29 IMPRESSION: COPD. No acute findings. Chest/Abdomen CTA 06/05/16 17:23 IMPRESSION: Obstructive lung disease. Bandlike scarring or atelectasis in the lingula and left lower lobe laterally Qualifiers PATEINT BEING DISCHARGED WITH ANY OF THE FOLLOWING DIAGNOSIS?: No Plan Discharge Plan: Discharge home today. Patient will follow up in office as directed upon discharge. Time Spent: Greater than 30 Minutes
[2016-06-10 15:35] VITALS: BP 145/75
== END 2016-06-10 16:00 | disposition home health service (06) | DRG 190 ==
LOC: ER 15:34 → EH 19:00 → UNDOADMIN 19:23 → 3S 22:05
PROVIDERS: ADMIT Internal Medicine Geriatric Medicine; ATTEND Internal Medicine Geriatric Medicine
PROC: 3E0F73Z Introduction of Anti-inflammatory into Respiratory Tract, Via Natural or Artificial Opening (ICD-10-PCS; principal; 2016-06-05)
DX: J44.9 Chronic obstructive pulmonary disease, unspecified (principal); J96.01 Acute respiratory failure with hypoxia; F17.210 Nicotine dependence, cigarettes, uncomplicated; I10 Essential (primary) hypertension; E11.9 Type 2 diabetes mellitus without complications; J45.909 Unspecified asthma, uncomplicated; Z98.51 Tubal ligation status; Z79.51 Long term (current) use of inhaled steroids; Z79.84 Long term (current) use of oral hypoglycemic drugs; Z88.8 Allergy status to other drugs, medicaments and biological substances; Z99.81 Dependence on supplemental oxygen
CPT/HCPCS: 36415; 71020; 71275; 80048; 80053; 82550; 82553; 82962; 83735; 83880; 84443; 84484; 85025; 87040; 87070; 87205; 93005; 93010; 94640; 99285; J0696; J1650; J1815; J2920; J3475; J3490; J7512

== ENCOUNTER → 2016-12-27 | Outpatient (CLI) | payer MEDICARE, BC, OTHER ==
--- NOTE | 2016-12-28 21:51 | WOMENS IMAGING REPORT ---
EXAM DESCRIPTION: 3D SCREENING MAMMO BILAT COMPLETED DATE/TIME: 12/27/2016 11:33 am REASON FOR STUDY: ROUTINE SCREENING; Z12.31 Z12.31 ENCNTR SCREEN MAMMOGRAM FOR MALIGNANT NEOPLASM O F ROSA MARIA COMPARISON: Multiple since 2013 TECHNIQUE: Standard craniocaudal and mediolateral oblique views of each breast recorded using digita l acquisition and breast tomosynthesis. LIMITATIONS: None. FINDINGS: Findings present which are benign by mammographic criteria. No suspicious masses, calcifi cations or architectural distortion. Pertinent benign findings: Stable bilateral benign breast parenchymal calcifications Read with the assistance of CAD. .[facility] - R2 Cenova Version 1.3 .[facility] - R2 Cenova Version 1.3 .[facility] - R2 Cenova Version 2.4 .[facility] - R2 Cenova Version 2.4 .[facility] - R2 Line Up Worker Version 9.2 Benign mammographic findings may include one or more of the following: Smooth masses, popcorn/rim/co arse calcifications, asymmetries, post-procedure changes, and lesions with long-standing stability. IMPRESSION: BENIGN MAMMOGRAPHIC FINDINGS. BIRADS 2 BREAST DENSITY: b. There are scattered areas of fibroglandular density. BIRAD: 2 BENIGN FINDING(S) RECOMMENDATION: RECOMMENDATION: ROUTINE SCREENING Please continue yearly bilateral screening tomosynthesis in December 2017 COMMENT: The patient has been notified of the results by letter per MQSA requirements. Additional no tification policies are in place for contacting patient with suspicious or incomplete findings. Quality ID #[id number]: The [employer] recommends an annual screening mammogram for women aged 40 years or over. This facility utilizes a reminder system to ensure that all patients receive reminder letters, and/or direct phone calls for appointments. This includes reminders for routine scr eening mammograms, diagnostic mammograms, or other Breast Imaging Interventions when appropriate. Th is patient will be placed in the appropriate reminder system. The [employer] (ACR) has developed recommendations for screening MRI of the breast s in certain patient populations, to be used in conjunction with mammography. Breast MRI surveillanc e may be appropriate for women with more than 20% lifetime risk of developing breast cancer as deter mined by genetic testing, significant family history of the disease, or history of mantle radiation f or Hodgkins Disease. ACR Practice Guidelines 2008. DBT Technology DBT is a type of tomographic mammography. With conventional mammography, overlapping breast tissue ma y make lesions difficult to detect, even with good compression. DBT uses an x-ray tube that rotates a round the breast, taking images at different angles. These images are then combined to create thin sl ices of the breast that the radiologist can view as a 3D reconstruction. The [employer] unit can perform full-field digital mammograms (2D imaging); or DBT (3D imaging); or both, in a combination mode that quickly performs both the mammogram and the tomosynthesis scan while the breast is still compressed. PQRS 6045F: Fluoroscopic imaging is not utilized for breast tomosynthesis. TECHNICAL DOCUMENTATION: FINDING NUMBER: (1) ASSESSMENT: (1) JOB ID: [id number] [employer]- All Rights Reserved
== END ==
LOC: WI 11:06
PROVIDERS: ATTEND Internal Medicine Geriatric Medicine
DX: Z12.31 Encounter for screening mammogram for malignant neoplasm of breast (principal)
CPT/HCPCS: 77063; G0202; 77067

== ENCOUNTER → 2017-12-28 | Outpatient (CLI) | payer MEDICARE ==
--- NOTE | 2017-12-28 10:54 | WOMENS IMAGING REPORT ---
EXAM DESCRIPTION: 3D SCREENING MAMMO BILAT COMPLETED DATE/TIME: 12/28/2017 10:18 am REASON FOR STUDY: SCREENING MAMMO Z12.31 ENCNTR SCREEN MAMMOGRAM FOR MALIGNANT NEOPLASM OF ROSA MARIA COMPARISON: [id number] TECHNIQUE: Standard craniocaudal and mediolateral oblique views of each breast recorded using digita l acquisition and breast tomosynthesis. LIMITATIONS: None. FINDINGS: No masses, calcifications or architectural distortion. No areas of suspicion. Read with the assistance of CAD. .[facility] - R2 Cenova Version 1.3 .[facility] - R2 Cenova Version 1.3 .[facility] - R2 Cenova Version 2.4 .[facility] - R2 Cenova Version 2.4 .[facility] - R2 Chemist Internship Version 9.2 IMPRESSION: NORMAL MAMMOGRAM. BIRADS 1. BREAST DENSITY: b. There are scattered areas of fibroglandular density. BIRAD: 1 NEGATIVE RECOMMENDATION: ROUTINE SCREENING COMMENT: The patient has been notified of the results by letter per SA requirements. Additional no tification policies are in place for contacting patient with suspicious or incomplete findings. Quality ID #[id number]: The [employer] recommends an annual screening mammogram for women aged 40 years or over. This facility utilizes a reminder system to ensure that all patients receive reminder letters, and/or direct phone calls for appointments. This includes reminders for routine scr eening mammograms, diagnostic mammograms, or other Breast Imaging Interventions when appropriate. Th is patient will be placed in the appropriate reminder system. The [employer] (ACR) has developed recommendations for screening MRI of the breast s in certain patient populations, to be used in conjunction with mammography. Breast MRI surveillanc e may be appropriate for women with more than 20% lifetime risk of developing breast cancer as deter mined by genetic testing, significant family history of the disease, or history of mantle radiation f or Hodgkins Disease. ACR Practice Guidelines 2008. DBT Technology DBT is a type of tomographic mammography. With conventional mammography, overlapping breast tissue ma y make lesions difficult to detect, even with good compression. DBT uses an x-ray tube that rotates a round the breast, taking images at different angles. These images are then combined to create thin sl ices of the breast that the radiologist can view as a 3D reconstruction. The [employer] unit can perform full-field digital mammograms (2D imaging); or DBT (3D imaging); or both, in a combination mode that quickly performs both the mammogram and the tomosynthesis scan while the breast is still compressed. PQRS 6045F: Fluoroscopic imaging is not utilized for breast tomosynthesis. TECHNICAL DOCUMENTATION: FINDING NUMBER: (1) ASSESSMENT: (1) JOB ID: [id number] [employer]- All Rights Reserved Reading location - IP/workstation name: [facility]
== END ==
LOC: WI 09:49
PROVIDERS: ATTEND Internal Medicine Geriatric Medicine
DX: Z12.31 Encounter for screening mammogram for malignant neoplasm of breast (principal)
CPT/HCPCS: 77063; 77067

== ENCOUNTER → 2018-12-31 | Outpatient (CLI) | payer MEDICARE, OTHER ==
--- NOTE | 2018-12-31 16:15 | WOMENS IMAGING REPORT ---
EXAM DESCRIPTION: 3D SCREENING MAMMO BILAT COMPLETED DATE/TIME: 12/31/2018 11:38 am REASON FOR STUDY: Z12.31 ENCOUNTER FOR SCREENING MAMMOGRAM FOR MALIGNANT NEOPLASM OF BREAST Z12.31 ENCNTR SCREEN MAMMOGRAM FOR MALIGNANT NEOPLASM OF ROSA MARIA COMPARISON: Multiple since 2013 EXAM PARAMETERS: Views: Standard craniocaudal and mediolateral oblique views of each breast recorded using digital acquisition and breast tomosynthesis. Read with the assistance of CAD. .[facility] - R2 Food Service Coordinator Version 9.2 LIMITATIONS: None. FINDINGS: No suspicious masses, suspicious calcifications or architectural distortion. No areas of c oncern. IMPRESSION: NEGATIVE MAMMOGRAM. BIRADS 1. BREAST DENSITY: b. There are scattered areas of fibroglandular density. BIRAD: ASSESSMENT: 1 NEGATIVE RECOMMENDATION: ROUTINE SCREENING COMMENT: The patient has been notified of the results by letter per MQSA requirements. Additional no tification policies are in place for contacting patient with suspicious or incomplete findings. Quality ID #[id number]: The [employer] recommends an annual screening mammogram for women aged 40 years or over. This facility utilizes a reminder system to ensure that all patients receive reminder letters, and/or direct phone calls for appointments. This includes reminders for routine scr eening mammograms, diagnostic mammograms, or other Breast Imaging Interventions when appropriate. Th is patient will be placed in the appropriate reminder system. TECHNICAL DOCUMENTATION: FINDING NUMBER: (1) ASSESSMENT: (1) JOB ID: [id number] [employer]- All Rights Reserved Reading location - IP/workstation name: [email or web address]
== END ==
LOC: WI 11:02
PROVIDERS: ATTEND Internal Medicine Geriatric Medicine
DX: Z12.31 Encounter for screening mammogram for malignant neoplasm of breast (principal)
CPT/HCPCS: 77063; 77067

== ENCOUNTER → 2020-04-21 | Outpatient (CLI) | payer MEDICARE, OTHER ==
--- NOTE | 2020-04-21 11:39 | WOMENS IMAGING REPORT ---
EXAM DESCRIPTION: 3D SCREENING MAMMO BILAT IMAGES COMPLETED DATE/TIME: 04/21/2020 11:05 am REASON FOR STUDY: Z12.31 ENCOUNTER FOR SCREENING MAMMOGRAM FOR MALIGNANT NEOPLASM OF BREAST Z12.31 ENCNTR SCREEN MAMMOGRAM FOR MALIGNANT NEOPLASM OF [place] COMPARISON: Priors dating back to 2013 EXAM PARAMETERS: Views: Standard craniocaudal and mediolateral oblique views of each breast recorded using digital acquisition and breast tomosynthesis. Read with the assistance of CAD. .[facility] - [employer] [facility] Program Coordinator Version 9.2 LIMITATIONS: None. FINDINGS: No suspicious masses, suspicious calcifications or architectural distortion. No areas of c oncern. IMPRESSION: NEGATIVE MAMMOGRAM. BIRADS 1. BREAST DENSITY: b. There are scattered areas of fibroglandular density. BIRAD: ASSESSMENT: 1 NEGATIVE RECOMMENDATION: ROUTINE SCREENING COMMENT: The patient has been notified of the results by letter per MQSA requirements. Additional no tification policies are in place for contacting patient with suspicious or incomplete findings. Quality ID #[id number]: The [employer] recommends an annual screening mammogram for women aged 40 years or over. This facility utilizes a reminder system to ensure that all patients receive reminder letters, and/or direct phone calls for appointments. This includes reminders for routine scr eening mammograms, diagnostic mammograms, or other Breast Imaging Interventions when appropriate. Th is patient will be placed in the appropriate reminder system. TECHNICAL DOCUMENTATION: FINDING NUMBER: (1) ASSESSMENT: (1) JOB ID: [id number] 2010 [employer]- All Rights Reserved Reading location - IP/workstation name: [email or web address]
== END ==
LOC: WI 10:46
PROVIDERS: ATTEND Internal Medicine Geriatric Medicine
DX: Z12.31 Encounter for screening mammogram for malignant neoplasm of breast (principal)
CPT/HCPCS: 77063; 77067